=== PATIENT | female | born 2005 | race Two or more races ===

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

== ENCOUNTER → 2023-05-16 | Outpatient (CLI) | payer BC ==
[2023-05-16 18:07] LABS: BASO % 0.5 % (0.0-1.0); EOS # 0.1 10^3/uL (0.0-0.5); EOS % 1.1 % (0.0-3.0); HEMATOCRIT 39.6 % (36.0-47.0); HEMOGLOBIN 12.5 g/dl (12.0-15.5); LYMPH # 2.2 10^3/uL (1.5-5.0); LYMPH % 26.1 % (24.0-44.0); MEAN CORPUSCULAR HGB CONC 31.6 g/dl (32.0-36.5); MEAN CORPUSCULAR VOLUME 82.5 fl (80.0-96.0); MONO # 0.5 10^3/uL (0.0-0.8); MONO % 5.5 % (2.0-8.0); NEUTROPHILS # 5.6 10^3/uL (1.5-8.5); NEUTROPHILS % 66.6 % (36.0-66.0); PLATELET COUNT, AUTOMATED 322 10^3/uL (150-450); WHITE BLOOD COUNT 8.3 10^3/uL (4.0-10.0)
[2023-05-16 18:14] LABS: TOTAL 25(OH) VITAMIN D 17.1 NG/ML (20.0-100.0)
[2023-05-16 18:15] LABS: FERRITIN 8.9 NG/ML (7.3-270.7); FOLLICLE STIMULATING HORMONE 9.8 mIU/ML; LUTEINIZING HORMONE 12.7 mIU/ML; THYROID STIMULATING HORMONE 3.138 uIU/ML (0.48-4.17)
[2023-05-16 18:16] LABS: FREE T4 1.05 NG/DL (0.83-1.43)
[2023-05-16 18:18] LABS: TOTAL T3 117.3 NG/DL (86.0-192.0)
== END ==
LOC: M LAB 16:09
PROVIDERS: ATTEND Dermatology
DX: R53.83 Other fatigue (principal)

== ENCOUNTER → 2023-08-08 | Outpatient (REF) | payer BC | LOC: M LAB REF 11:49 | PROVIDERS: ATTEND Internal Medicine | DX: D50.9 Iron deficiency anemia, unspecified (principal) ==

== ENCOUNTER → 2023-12-25 | Outpatient (REF) | payer BC | LOC: M LAB REF 16:15 | PROVIDERS: ATTEND Internal Medicine | DX: D50.9 Iron deficiency anemia, unspecified (principal) ==

== ENCOUNTER → 2024-06-24 | Outpatient (REF) | payer BC | LOC: M LAB REF 16:10 | PROVIDERS: ATTEND Internal Medicine | DX: D50.9 Iron deficiency anemia, unspecified (principal) ==

== ENCOUNTER → 2024-12-17 | Outpatient (REF) | payer BC | LOC: M LAB REF 12:23 | PROVIDERS: ATTEND Internal Medicine | DX: D50.9 Iron deficiency anemia, unspecified (principal) ==